=== PATIENT | female | born 1935 | race Caucasian/White ===

== ENCOUNTER → 2018-04-18 | Outpatient (CLI) | payer MEDICARE, OTHER ==
[~2018-04-18] MED LIST: GADOBUTROL 7.5 MMOL/7.5 ML PFS ONE
== END | disposition home or self-care (01) ==
LOC: CFH 08:23
PROVIDERS: ATTEND Family Medicine
DX: C96.4 Sarcoma of dendritic cells (accessory cells) (principal)
CPT/HCPCS: 73720; A9585

== ENCOUNTER → 2018-05-08 | Outpatient (CLI) | payer MEDICARE, OTHER ==
[~2018-05-08] MED LIST changes: +CALCIUM PO; -GADOBUTROL 7.5 MMOL/7.5 ML PFS ONE; +MULT1TAB60 PO; +PANT40TA3 PO; +VITAMIN B PO; +VITAMIN D PO
== END | disposition home or self-care (01) ==
LOC: STAR 08:30
PROVIDERS: ATTEND Surgery
DX: Z01.818 Encounter for other preprocedural examination (principal); R92.0 Mammographic microcalcification found on diagnostic imaging of breast; I25.2 Old myocardial infarction
CPT/HCPCS: 93005

== ENCOUNTER → 2018-05-09 | Outpatient (CLI) | payer MEDICARE, OTHER ==
[~2018-05-09] MED LIST changes: +LIDOCAINE 1%, 10ML ONE; +LIDOCAINE 1%-EPI 1:100K, 20ML ONE; +SODIUM BICARBONATE 4.0%, 5ML ONE
== END | disposition home or self-care (01) ==
LOC: CFH 10:06
PROVIDERS: ATTEND Surgery
DX: R92.0 Mammographic microcalcification found on diagnostic imaging of breast (principal); I25.2 Old myocardial infarction; Z79.899 Other long term (current) drug therapy; Z98.890 Other specified postprocedural states; Z82.49 Family history of ischemic heart disease and other diseases of the circulatory system
CPT/HCPCS: 19281; J3490

== ENCOUNTER 2018-05-15 10:11 | Day surgery (SDC) | payer MEDICARE, OTHER ==
[~2018-05-15] VITALS: Ht 168.9 cm; Wt 61.6 kg
[~2018-05-15 10:11] MED LIST changes: -LIDOCAINE 1%, 10ML ONE; -LIDOCAINE 1%-EPI 1:100K, 20ML ONE; -SODIUM BICARBONATE 4.0%, 5ML ONE
[2018-05-15] MEDS ORDERED: FENTANYL PF 250 MCG/5ML ONE (10:32)
[2018-05-15] MEDS ORDERED: MIDAZOLAM 1 MG/ML, 2ML ONE (10:32)
[2018-05-15] MEDS ORDERED: LIDOCAINE-MPF 2% ,5ML ONE (10:33)
[2018-05-15] MEDS ORDERED: PROPOFOL 10 MG/ML, 20ML ONE (10:33)
[2018-05-15 10:42] VITALS: BP 168/90
[2018-05-15] MEDS ORDERED: LACTATED RINGERS 1,000 ML IV SCH (10:42)
[2018-05-15] MEDS ORDERED: BUPIVACAINE/PF-EPI 0.5% 1:200K ONE (13:44)
[2018-05-15] MEDS ORDERED: VANCOMYCIN 1,000 MG ONE (14:20)
[2018-05-15] MEDS ORDERED: ONDANSETRON 2MG/ML, 2ML ONE ×2 (14:35)
[2018-05-15] MEDS ORDERED: DEXAMETHASONE 4 MG/ML, 1ML ONE (14:35)
[2018-05-15] MEDS ORDERED: ACETAMINOPHEN 650 MG/20.3 ML UDC ONE (15:26)
[2018-05-15] MEDS ORDERED: ACETAMINOPHEN 325 MG TABLET PO PRN (15:30)
[2018-05-15] MEDS ORDERED: HYDROmorphone 1 MG/ML, 1ML IV PRN (15:30)
[2018-05-15] MEDS ORDERED: HYDROcodone/APAP 7.5-325MG/15ML UDC PO PRN (15:30)
[2018-05-15] MEDS ORDERED: HALOPERIDOL 5 MG/ML IV PRN (15:30)
[2018-05-15] MEDS ORDERED: FENTANYL PF 100 MCG/2ML IV PRN (15:30)
[2018-05-15] MEDS ORDERED: MEPERIDINE/PF 25MG/0.5ML IVPush PRN (15:30)
[2018-05-15] MEDS ORDERED: hydrALAzine 20 MG/ML, 1ML ONE (15:35)
[2018-05-15] MEDS ORDERED: hydrALAzine 20 MG/ML, 1ML IV ONE (16:00)
== END 2018-05-15 18:00 | disposition home or self-care (01) ==
LOC: OUT 10:11
PROVIDERS: ATTEND Surgery
DX: R92.0 Mammographic microcalcification found on diagnostic imaging of breast (principal); I10 Essential (primary) hypertension; I34.0 Nonrheumatic mitral (valve) insufficiency; K21.9 Gastro-esophageal reflux disease without esophagitis; Z72.89 Other problems related to lifestyle; Z88.1 Allergy status to other antibiotic agents; Z88.5 Allergy status to narcotic agent; Z88.8 Allergy status to other drugs, medicaments and biological substances; Z79.899 Other long term (current) drug therapy; Z96.653 Presence of artificial knee joint, bilateral; Z98.890 Other specified postprocedural states; Z86.14 Personal history of Methicillin resistant Staphylococcus aureus infection; Z90.49 Acquired absence of other specified parts of digestive tract; Z91.040 Latex allergy status
CPT/HCPCS: 19125; 76098; J0360; J1100; J2250; J2405; J2704; J3010; J3370; J3490; J7120; 88307